=== PATIENT | male | born 1955 | race Caucasian/White ===

== ENCOUNTER 2018-05-04 10:42 | Day surgery (SDC) | payer OTHER ==
[2018-05-04 11:35] VITALS: BMI 42.5
[2018-05-04] MEDS ORDERED: LIDOCAINE HCL/PF 1% SDV 5ML VIAL ONE (11:48)
[2018-05-04] MEDS ORDERED: PROPOFOL 20 ML ONE ×3 (11:48)
[2018-05-04 12:43] VITALS: TEMP 97.8
[2018-05-04 13:55] LABS: ANION GAP 5 (8-16); CALCIUM 8.6 mg/dL (8.5-10.1); CHLORIDE 102 mmol/L (98-107); CO2 31 mmol/L (21-32); MAGNESIUM 1.5 mg/dL (1.8-2.4); SODIUM 138 mmol/L (136-145)
[2018-05-04 13:56] LABS: BLOOD UREA NITROGEN 24 mg/dL (7-18); CREATININE 1.3 mg/dL (0.7-1.3); GLUCOSE,RANDOM 157 mg/dL (74-106)
[2018-05-04 15:10] VITALS: BP 116/61; PULSE 56
--- NOTE | 2018-05-06 15:14 | PATH ---
Surgical Pathology Report Patient Name: VIANCA COATES [place]. Rec. #: [id number] /Age/Gender: 1955 (Age: 62) / M Account: [id number] Location: [facility]-ENDOSCOPY Taken: 05/04/2018 Received: 05/04/2018 Reported: 05/06/2018 Physicians: Hernandez Ye D.O. Specimen(s) Received A: BX DISTAL TRANSVERSE COLON POLYP B: BX SUBMUCOUSAL NODULE C: BX MIDTRANSVERSE COLON Clinical History Abdominal pain, colon polyps Final Diagnosis A. DISTAL TRANSVERSE COLON POLYPS X 2, POLYPECTOMY: TUBULAR ADENOMA, FRAGMENTS. B. SUBMUCOSAL NODULE IN CECUM, BIOPSY: FRAGMENTS OF COLONIC MUCOSA WITH A SMALL SUBMUCOSA LYMPHOID AGGREGATE. C. MID TRANSVERSE COLON POLYP, POLYPECTOMY: TUBULAR ADENOMA. Electronically Signed Vania Musa M.D. Gross Description A. Received in formalin, labeled "distal transverse colon polyp x 2 " are 5 boss, irregular portions of soft tissue measuring 0.4 cm. in greatest dimension. The specimens are submitted in toto in one cassette. B. Received in formalin, labeled "biopsy submucosal nodule in cecum" is a boss, irregular portion of soft tissue measuring 0.3 cm. in greatest dimension. The specimens are submitted in toto in one cassette. C. Received in formalin, labeled "polyp mid transverse colon" are 2 boss, irregular portions of soft tissue measuring 0.3 cm. in greatest dimension. The specimens are submitted in toto in one cassette. __ [facility]/05/04/2018 [place]/05/04/2018
== END 2018-05-04 14:00 | disposition home or self-care (01) ==
LOC: JASU-ENDO 10:42
PROVIDERS: ATTEND Internal Medicine Gastroenterology
PROC: 0DBH8ZX Excision of Cecum, Via Natural or Artificial Opening Endoscopic, Diagnostic (ICD-10-PCS; 2018-05-04)
PROC: 0DBL8ZX Excision of Transverse Colon, Via Natural or Artificial Opening Endoscopic, Diagnostic (ICD-10-PCS; principal; 2018-05-04 11:30)
DX: D12.3 Benign neoplasm of transverse colon (principal); K64.8 Other hemorrhoids; D12.0 Benign neoplasm of cecum
CPT/HCPCS: 36415; 80048; 82962; 83735; 88305-TC

== ENCOUNTER 2019-04-21 09:20 | Day surgery (SDC) | payer OTHER ==
[2019-04-21 07:40] VITALS: BMI 44.9
[2019-04-21] MEDS ORDERED: TETRACAINE/BENZOCAINE/BUTAMBEN 20 GM SPR TP ONE (10:59)
[2019-04-21] MEDS ORDERED: LIDOCAINE VISCOUS 2% ORAL/TOP 20 ML UNIT-DOSE CUP ONE (10:59)
[2019-04-21] MEDS ORDERED: MIDAZOLAM HCL 2 MG/2 ML SINGLE DOSE VIAL ONE (10:59)
[2019-04-21 11:31] VITALS: TEMP 99
[2019-04-21 12:58] VITALS: BP 147/83; PULSE 60
--- NOTE | 2019-04-22 17:55 | PATH ---
Surgical Pathology Report Patient Name: VIANCA COATES [facility]. Rec. #: [id number] /Age/Gender: 1955 (Age: 63) / M Account: [id number] Location: [facility]-ENDOSCOPY Taken: 04/21/2019 Received: 04/21/2019 Reported: 04/22/2019 Physicians: Hernandez Ye D.O. Specimen(s) Received A: ANGULARIS AND ANTRUM B: BODY STOMACH Clinical History Abdominal pain, dyspepsia, H. Pylori Postoperative diagnosis: Gastritis Final Diagnosis A. STOMACH, ANTRUM AND ANGULARIS, BIOPSY: GASTRIC MUCOSA WITH SEVERE CHRONIC ACTIVE GASTRITIS. IMMUNOHISTOCHEMICAL STAIN FOR H. PYLORI IS POSITIVE (MANY). B. STOMACH, BODY, BIOPSY: GASTRIC BODY MUCOSA WITH SEVERE CHRONIC ACTIVE GASTRITIS. IMMUNOHISTOCHEMICAL STAIN FOR H. PYLORI IS POSITIVE (MANY). Electronically Signed Maggie Borges M.D. Gross Description A. Received in formalin, labeled "biopsy antrum and angularis" are 3 boss, irregular portions of soft tissue ranging from 0.2-0.3 cm. in greatest dimension. The specimens are submitted in toto in one cassette. B. Received in formalin, labeled "biopsy body of stomach" are 3 boss, irregular portions of soft tissue ranging from 0.2-0.3 cm. in greatest dimension. The specimens are submitted in toto in one cassette. 04/21/2019 [facility]04/21/2019
== END 2019-04-21 12:20 | disposition home or self-care (01) ==
LOC: JASU-ENDO 09:20
PROVIDERS: ATTEND Internal Medicine Gastroenterology
PROC: 0DB68ZX Excision of Stomach, Via Natural or Artificial Opening Endoscopic, Diagnostic (ICD-10-PCS; principal; 2019-04-21 10:30)
DX: K29.50 Unspecified chronic gastritis without bleeding (principal); B96.81 Helicobacter pylori [H. pylori] as the cause of diseases classified elsewhere; I10 Essential (primary) hypertension; E11.9 Type 2 diabetes mellitus without complications; Z79.84 Long term (current) use of oral hypoglycemic drugs
CPT/HCPCS: 82962; 88305-TC; 88342-TC

== ENCOUNTER 2021-09-03 04:54 | Day surgery (SDC) | payer OTHER ==
[2021-09-03] MEDS ORDERED: KETAMINE HCL 200 MG/20 ML VIAL ONE (07:08)
[2021-09-03 07:31] VITALS: BMI 42.2
[2021-09-03 08:52] VITALS: TEMP 97.5
[2021-09-03 09:20] VITALS: BP 109/57; PULSE 52
== END 2021-09-03 09:36 | disposition home or self-care (01) ==
LOC: JASU-ENDO 04:54
PROVIDERS: ATTEND Internal Medicine Gastroenterology
PROC: 0DBH8ZX Excision of Cecum, Via Natural or Artificial Opening Endoscopic, Diagnostic (ICD-10-PCS; 2021-09-03)
PROC: 0DBN8ZX Excision of Sigmoid Colon, Via Natural or Artificial Opening Endoscopic, Diagnostic (ICD-10-PCS; 2021-09-03)
PROC: 0DBF8ZX Excision of Right Large Intestine, Via Natural or Artificial Opening Endoscopic, Diagnostic (ICD-10-PCS; 2021-09-03)
PROC: 0DBL8ZX Excision of Transverse Colon, Via Natural or Artificial Opening Endoscopic, Diagnostic (ICD-10-PCS; principal; 2021-09-03 08:00)
DX: Z12.11 Encounter for screening for malignant neoplasm of colon (principal); D12.4 Benign neoplasm of descending colon; D12.5 Benign neoplasm of sigmoid colon; D12.3 Benign neoplasm of transverse colon; K64.8 Other hemorrhoids; Z86.010 Personal history of colon polyps
CPT/HCPCS: 82962; 88305-TC

== ENCOUNTER 2022-03-18 04:40 | Day surgery (SDC) | payer OTHER ==
[2022-03-13 15:52] VITALS: BMI 41.9
[2022-03-18] MEDS ORDERED: TETRACAINE/BENZOCAINE/BUTAMBEN 20 GM SPR TP ONE ×4 (09:17)
[2022-03-18 09:33] VITALS: TEMP 98
[2022-03-18 10:06] VITALS: BP 122/76; PULSE 62
== END 2022-03-18 10:32 | disposition home or self-care (01) ==
LOC: JASU-ENDO 04:40
PROVIDERS: ATTEND Internal Medicine Gastroenterology
PROC: 0DB68ZX Excision of Stomach, Via Natural or Artificial Opening Endoscopic, Diagnostic (ICD-10-PCS; principal; 2022-03-18 08:45)
DX: K29.50 Unspecified chronic gastritis without bleeding (principal); E11.9 Type 2 diabetes mellitus without complications; I10 Essential (primary) hypertension; I48.91 Unspecified atrial fibrillation
CPT/HCPCS: 82962; 88305-TC; 88342-TC

== ENCOUNTER 2023-04-08 04:02 | Day surgery (SDC) | payer OTHER ==
[2023-04-03 12:21] VITALS: BMI 39.9
[2023-04-08 06:49] VITALS: RESP 20
[2023-04-08] MEDS ORDERED: CLINDAMYCIN 600MG PREMIX IVPB 600 MG/50 ML BAG IVPB ONE (08:04)
[2023-04-08] MEDS ORDERED: PROPOFOL 20 ML ONE (08:10)
[2023-04-08] MEDS ORDERED: MIDAZOLAM HCL 2 MG/2 ML SINGLE DOSE VIAL ONE (08:10)
[2023-04-08] MEDS ORDERED: LIDOCAINE HCL/PF 2% SDV 5ML VIAL ONE (08:10)
[2023-04-08] MEDS ORDERED: BUPIVACAINE HCL/PF 0.5% (5MG/ML) 10 ML VIAL ONE (08:15)
[2023-04-08] MEDS ORDERED: CLINDAMYCIN 600 MG PREMIX BAG IVPB ONE (08:16)
[2023-04-08] MEDS ORDERED: BUPIVACAINE HCL/PF 0.5% (5 MG/ML) 30 ML VIAL IJ ONE (08:19)
[2023-04-08] MEDS ORDERED: LIDOCAINE HCL 1%, 10 MG/ML (20ML VIAL) INF ONE (08:19)
[2023-04-08 11:02] VITALS: BP 138/75; PULSE 53; TEMP 97.3
== END 2023-04-08 11:06 | disposition home or self-care (01) ==
LOC: JASU-SURG 04:02
PROVIDERS: ATTEND Podiatrist Foot & Ankle Surgery
PROC: 0SRP0JZ Replacement of Right Toe Phalangeal Joint with Synthetic Substitute, Open Approach (ICD-10-PCS; principal; 2023-04-08 08:00)
DX: M20.41 Other hammer toe(s) (acquired), right foot (principal); E11.621 Type 2 diabetes mellitus with foot ulcer; M19.071 Primary osteoarthritis, right ankle and foot
CPT/HCPCS: 73630-TC-RT-FY; 82962; 88305-TC; 88311-TC

== ENCOUNTER 2024-03-02 07:52 | Inpatient (IN) | payer OTHER ==
[2024-03-02 08:00] VITALS: BMI 39.9
[2024-03-02] MEDS ORDERED: ALBUTEROL SO4 2.5/IPRATROPIUM 0.5 INH SOL 3 ML VIAL.NEB. NEB ONE (08:46)
[2024-03-02] MEDS: ALBUTEROL SO4 2.5/IPRATROPIUM 0.5 INH SOL 3 ML VIAL.NEB. NEB ONE (08:50)
[2024-03-02 09:11] LABS: BASO % 0.9 % (0-2.0); EOS % 1.7 % (0-4.5); HEMATOCRIT 43.2 % (35.4-49); HEMOGLOBIN 14.6 GM/dL (11.7-16.9); LYMPH % 10.7 % (8-40); MCH 28.9 pg (25.7-33.7); MCHC 33.9 g/dl (32.0-35.9); MEAN CELL VOLUME 85.4 fl (80-96); MEAN PLT VOLUME 9.4 fl (7.5-11.1); MONO % 7.3 % (3.8-10.2); NEUT % 79.4 % (42.8-82.8); PLATELET COUNT 133 10^3/uL (134-434); RBC 5.06 M/mm3 (4.00-5.60); RDW 13.1 % (11.9-15.9); WHITE BLOOD COUNT 10.5 K/mm3 (4.0-10.0)
[2024-03-02 09:27] LABS: POTASSIUM 3.9 mmol/L (3.5-5.1)
[2024-03-02 09:32] LABS: CALCIUM 8.5 mg/dL (8.5-10.1)
[2024-03-02 09:33] LABS: ALBUMIN 3.1 g/dl (3.4-5.0); BLOOD UREA NITROGEN 17.7 mg/dL (7-18)
[2024-03-02 09:35] LABS: CREATININE 0.9 mg/dL (0.55-1.3)
[2024-03-02 09:36] LABS: BILIRUBIN,TOTAL 2.6 mg/dL (0.2-1)
[2024-03-02 09:37] LABS: TOT PROT 6.4 g/dl (6.4-8.2)
[2024-03-02 09:40] LABS: N-TERMINAL BNP 3178.8 pg/ml (5-125)
[2024-03-02] MEDS ORDERED: methylPREDNISolone NA SUCC 125 MG/2 ML VIAL ONE (10:36)
[2024-03-02] MEDS ORDERED: FUROSEMIDE 40 MG/4 ML INJECTABLE VIAL ONE (10:37)
[2024-03-02] MEDS: FUROSEMIDE 40 MG/4 ML INJECTABLE VIAL IVPUSH ONE (10:44)
[2024-03-02] MEDS: methylPREDNISolone NA SUCC 125 MG/2 ML VIAL IVPUSH ONE (10:44)
[2024-03-02] MEDS ORDERED: ROSUVASTATIN CA 5 MG TABLET ONE (11:48)
[2024-03-02] MEDS ORDERED: FAMOTIDINE 20 MG TABLET ONE (11:48)
[2024-03-02] MEDS ORDERED: LOSARTAN POTASSIUM 50 MG TABLET ONE (11:48)
[2024-03-02] MEDS: ROSUVASTATIN CA 5 MG TABLET PO SCH (11:50)
[2024-03-02] MEDS: LOSARTAN POTASSIUM 50 MG TABLET PO SCH (11:50)
[2024-03-02] MEDS: FAMOTIDINE 20 MG TABLET PO SCH (11:50)
[2024-03-02 11:51] LABS: BILIRUBIN,DIRECT 0.4 mg/dL (0.0-0.2)
[2024-03-02] MEDS: ALBUTEROL SO4 2.5/IPRATROPIUM 0.5 INH SOL 3 ML VIAL.NEB. NEB SCH (20:11)
[2024-03-02] MEDS: APIXABAN 5 MG TABLET PO SCH (22:20)
[2024-03-02] MEDS: SOTALOL HCL 80 MG TABLET (FP) PO SCH (22:21)
[2024-03-03 08:25] LABS: POTASSIUM 3.8 mmol/L (3.5-5.1)
[2024-03-03 08:28] LABS: BLOOD UREA NITROGEN 29.4 mg/dL (7-18); CALCIUM 8.4 mg/dL (8.5-10.1)
[2024-03-03 08:29] LABS: ALBUMIN 2.9 g/dl (3.4-5.0); MAGNESIUM 1.7 mg/dL (1.8-2.4)
[2024-03-03 08:32] LABS: CREATININE 1.1 mg/dL (0.55-1.3); PHOSPHOROUS 3.5 mg/dL (2.5-4.9)
[2024-03-03 08:33] LABS: BILIRUBIN,TOTAL 1.9 mg/dL (0.2-1); TOT PROT 5.8 g/dl (6.4-8.2)
[2024-03-03 08:46] LABS: HEMATOCRIT 40.2 % (35.4-49); MCH 28.9 pg (25.7-33.7); MCHC 34.7 g/dl (32.0-35.9); MEAN CELL VOLUME 83.3 fl (80-96); MEAN PLT VOLUME 9.2 fl (7.5-11.1); PLATELET COUNT 130 10^3/uL (134-434); RBC 4.82 M/mm3 (4.00-5.60); RDW 13.6 % (11.9-15.9); WHITE BLOOD COUNT 12.4 K/mm3 (4.0-10.0)
[2024-03-03] MEDS: MAGNESIUM SULF 50% (8.12 MEQ/2 ML-1 GM VIAL) IVPB ONE (11:03)
[2024-03-03] MEDS: predniSONE 20 MG TABLET (UD) PO SCH (11:17)
[2024-03-03] MEDS: INSULIN ASPART SLIDING SCALE (NOVOLOG) 1 VIAL SQ SCH (11:29)
[2024-03-04 05:04] VITALS: RESP 18
[2024-03-04] MEDS: PNEUMOC 20-VAL CONJ-DIP CRM/PF 0.5 ML SYRINGE IM ONE (08:08)
[2024-03-04 10:27] LABS: BASO % 0.4 % (0-2.0); EOS % 0.4 % (0-4.5); HEMATOCRIT 38.9 % (35.4-49); HEMOGLOBIN 13.3 GM/dL (11.7-16.9); LYMPH % 12.8 % (8-40); MCH 28.7 pg (25.7-33.7); MCHC 34.2 g/dl (32.0-35.9); MEAN PLT VOLUME 9.3 fl (7.5-11.1); NEUT % 79.4 % (42.8-82.8); PLATELET COUNT 132 10^3/uL (134-434); RBC 4.63 M/mm3 (4.00-5.60); RDW 13.5 % (11.9-15.9); WHITE BLOOD COUNT 12.6 K/mm3 (4.0-10.0)
[2024-03-04 10:46] LABS: POTASSIUM 3.4 mmol/L (3.5-5.1)
[2024-03-04 10:50] LABS: CALCIUM 8.5 mg/dL (8.5-10.1)
[2024-03-04 10:51] LABS: BLOOD UREA NITROGEN 28.8 mg/dL (7-18); MAGNESIUM 2.1 mg/dL (1.8-2.4)
[2024-03-04 10:54] LABS: PHOSPHOROUS 2.6 mg/dL (2.5-4.9)
[2024-03-04] MEDS: POTASSIUM CHLORIDE TABS 20 MEQ TABLET.ER (FP) PO ONE (14:42)
[2024-03-04 15:14] VITALS: BP 149/89; PULSE 57; TEMP 97.6
== END 2024-03-04 15:38 | disposition home or self-care (01) | DRG 191 ==
LOC: JER 07:52 → UNDOADMOB 10:31 → INTOOBSV 10:31 → JERBED 10:31 → J6S 15:07 → JERBED 18:42 → OBSVTOIN 03-03 13:26
PROVIDERS: ADMIT Internal Medicine; ATTEND Internal Medicine
DX: J44.1 Chronic obstructive pulmonary disease with (acute) exacerbation (principal); Z68.41 Body mass index [BMI] 40.0-44.9, adult; E66.9 Obesity, unspecified; I10 Essential (primary) hypertension; E78.5 Hyperlipidemia, unspecified; E11.9 Type 2 diabetes mellitus without complications
CPT/HCPCS: 0241U-QW; 36415; 71045-TC-FY; 71250-TC; 80048; 80053; 82248; 82962; 83735; 83880; 84100; 84484; 85025; 85027; 87081; 93005; 93010; 93306-TC; 94640; 99285-25; G0378

== ENCOUNTER 2024-03-23 04:19 | Day surgery (SDC) | payer OTHER ==
[2024-03-21 09:45] VITALS: BMI 41.2
[2024-03-23 06:33] VITALS: RESP 20
[2024-03-23] MEDS ORDERED: LIDOCAINE HCL 1%, 10 MG/ML (20ML VIAL) ONE (07:07)
[2024-03-23] MEDS ORDERED: BUPIVACAINE HCL/PF 0.5% (5MG/ML) 10 ML VIAL ONE (07:07)
[2024-03-23] MEDS ORDERED: GENTAMICIN SO4 80 MG/2 ML VIAL ONE (07:07)
[2024-03-23] MEDS ORDERED: MIDAZOLAM HCL 2 MG/2 ML SINGLE DOSE VIAL ONE (07:16)
[2024-03-23] MEDS ORDERED: FENTANYL CITRATE/PF 50 MCG/ML VIAL ONE (07:16)
[2024-03-23] MEDS ORDERED: PROPOFOL 20 ML ONE (07:16)
[2024-03-23] MEDS ORDERED: LIDOCAINE HCL/PF 2% SDV 5ML VIAL ONE (07:16)
[2024-03-23] MEDS ORDERED: CLINDAMYCIN PHOSPHATE 300 MG/2 ML VIAL ONE (07:48)
[2024-03-23] MEDS ORDERED: CLINDAMYCIN PHOSPHATE 600 MG/4 ML VIAL ONE (07:48)
[2024-03-23] MEDS: CLINDAMYCIN 900 MG PREMIX BAG IVPB ONE (07:50)
[2024-03-23] MEDS ORDERED: PROPOFOL 40 ML ONE (07:50)
[2024-03-23] MEDS: BUPIVACAINE HCL/PF 0.5% (5 MG/ML) 30 ML VIAL IJ ONE (07:57)
[2024-03-23] MEDS: LIDOCAINE HCL 1% PRESERVATIVE FREE - 30ML VIAL IJ ONE (07:57)
[2024-03-23] MEDS ORDERED: ONDANSETRON 4 MG/2 ML VIAL ONE (08:05)
[2024-03-23] MEDS ORDERED: KETOROLAC TROMETHAMINE 30 MG/1 ML VIAL ONE (08:05)
[2024-03-23 09:45] VITALS: TEMP 95
[2024-03-23 11:34] VITALS: BP 132/78; PULSE 59
== END 2024-03-23 10:30 | disposition home or self-care (01) ==
LOC: JASU-SURG 04:19
PROVIDERS: ATTEND Podiatrist Foot & Ankle Surgery
PROC: 0L8W0ZZ Division of Left Foot Tendon, Open Approach (ICD-10-PCS; principal; 2024-03-23 07:30)
DX: M20.42 Other hammer toe(s) (acquired), left foot (principal)
CPT/HCPCS: 73630-TC-LT; 82962; 88305-TC; 88311-TC

== ENCOUNTER 2024-04-24 10:06 | Observation (INO) | payer OTHER ==
[2024-04-24 10:14] VITALS: BMI 41.2
[2024-04-24] MEDS ORDERED: ACETAMINOPHEN INJECTION 100 ML IVPB ONE (10:47)
[2024-04-24] MEDS ORDERED: MAG HYDROX/AL HYDROX/SIMETH 30 ML UNIT-DOSE CUP ONE (10:48)
[2024-04-24] MEDS ORDERED: FAMOTIDINE 20 MG/50 ML IVPB 20 MG/50 ML MG IVPB ONE (10:48)
[2024-04-24] MEDS: FAMOTIDINE 20 MG/50 ML IVPB 20 MG/50 ML MG IVPB ONE (11:20)
[2024-04-24] MEDS: MAG HYDROX/AL HYDROX/SIMETH 30 ML UNIT-DOSE CUP PO ONE (11:20)
[2024-04-24] MEDS: ACETAMINOPHEN 1000 MG/100 ML BAG IVPB ONE (11:20)
[2024-04-24 11:27] LABS: BASO % 0.5 % (0-2.0); HEMATOCRIT 42.7 % (35.4-49); HEMOGLOBIN 14.8 GM/dL (11.7-16.9); LYMPH % 12.5 % (8-40); MCHC 34.7 g/dl (32.0-35.9); MEAN CELL VOLUME 83.3 fl (80-96); MEAN PLT VOLUME 9.1 fl (7.5-11.1); MONO % 8.8 % (3.8-10.2); NEUT % 76.2 % (42.8-82.8); PLATELET COUNT 148 10^3/uL (134-434); RBC 5.13 M/mm3 (4.00-5.60); RDW 13.7 % (11.9-15.9); WHITE BLOOD COUNT 9.6 K/mm3 (4.0-10.0)
[2024-04-24 11:31] LABS: INR 1.46 (0.83-1.09); PROTHROMBIN TIME (PATIENT) 16.6 SEC (9.7-13.0)
[2024-04-24 11:39] LABS: POTASSIUM 4.1 mmol/L (3.5-5.1)
[2024-04-24 11:42] LABS: CALCIUM 8.7 mg/dL (8.5-10.1)
[2024-04-24 11:43] LABS: ALBUMIN 3.3 g/dl (3.4-5.0); BLOOD UREA NITROGEN 20.8 mg/dL (7-18)
[2024-04-24 11:46] LABS: CREATININE 1.2 mg/dL (0.55-1.3)
[2024-04-24 11:47] LABS: BILIRUBIN,TOTAL 1.6 mg/dL (0.2-1); TOT PROT 6.5 g/dl (6.4-8.2)
[2024-04-24 11:51] LABS: N-TERMINAL BNP 1828.1 pg/ml (5-125)
[2024-04-24 19:56] LABS: BILIRUBIN,DIRECT 0.3 mg/dL (0.0-0.2)
[2024-04-24] MEDS ORDERED: INSULIN ASPART SLIDING SCALE (NOVOLOG) 1 VIAL SQ SCH (22:00)
[2024-04-24] MEDS: ACETAMINOPHEN 500 MG TABLET (FP) PO ONE (23:18)
[2024-04-24] MEDS: INSULIN ASPART SLIDING SCALE (NOVOLOG) 1 VIAL SQ SCH (23:22)
[2024-04-25 05:11] LABS: EPI CELLS 13 /uL (0-25.1); HYALINE CASTS 1 /uL (0-3.1); PH,URINE 6.5 (5.0-8.0); URINE APPEARANCE CLEAR; URINE BACTERIA 48 /uL (0-1359); URINE BILIRUBIN NEGATIVE (NEGATIVE); URINE COLOR YELLOW; URINE GLUCOSE (UA) NEGATIVE (NEGATIVE); URINE KETONE TRACE (NEGATIVE); URINE LEUK ESTERASE NEGATIVE (NEGATIVE); URINE NITRITE NEGATIVE (NEGATIVE); URINE PROTEIN 3+ (NEGATIVE); URINE RBC 41 /uL (0-23.9); URINE WBC 20 /uL (0-25.8)
[2024-04-25] MEDS: ACETAMINOPHEN 500 MG TABLET (FP) PO PRN (06:34)
[2024-04-25 07:58] LABS: HEMATOCRIT 39.6 % (35.4-49); HEMOGLOBIN 13.3 GM/dL (11.7-16.9); MCH 28.2 pg (25.7-33.7); MCHC 33.7 g/dl (32.0-35.9); MEAN CELL VOLUME 83.7 fl (80-96); MEAN PLT VOLUME 9.5 fl (7.5-11.1); PLATELET COUNT 125 10^3/uL (134-434); RBC 4.73 M/mm3 (4.00-5.60); RDW 13.8 % (11.9-15.9); WHITE BLOOD COUNT 7.7 K/mm3 (4.0-10.0)
[2024-04-25 08:20] LABS: POTASSIUM 3.6 mmol/L (3.5-5.1)
[2024-04-25 08:28] LABS: BLOOD UREA NITROGEN 15.1 mg/dL (7-18); MAGNESIUM 1.6 mg/dL (1.8-2.4)
[2024-04-25 08:32] LABS: CREATININE 0.8 mg/dL (0.55-1.3)
[2024-04-25 08:34] LABS: BILIRUBIN,TOTAL 1.9 mg/dL (0.2-1); TOT PROT 5.7 g/dl (6.4-8.2)
[2024-04-25] MEDS ORDERED: INSULIN (NOVOLOG) ASPART 100 UNITS/ML 10ML VIAL ONE (10:35)
[2024-04-25] MEDS: PANTOPRAZOLE SODIUM 40 MG VIAL IVPUSH SCH (10:38)
[2024-04-25] MEDS: LOSARTAN POTASSIUM 50 MG TABLET PO SCH (10:38)
[2024-04-25] MEDS: FAMOTIDINE 20 MG TABLET PO SCH (10:38)
[2024-04-25] MEDS: APIXABAN 5 MG TABLET PO SCH (10:38)
[2024-04-25] MEDS: MAGNESIUM SULFATE IN WATER 2 GM/50 ML IVPB IVPB ONE (10:38)
[2024-04-25] MEDS: ROSUVASTATIN CA 5 MG TABLET PO SCH (21:04)
[2024-04-25] MEDS: SOTALOL HCL 80 MG TABLET (FP) PO SCH (21:04)
[2024-04-26 08:13] LABS: BASO % 0.5 % (0-2.0); EOS % 2.4 % (0-4.5); HEMATOCRIT 39.7 % (35.4-49); HEMOGLOBIN 13.6 GM/dL (11.7-16.9); LYMPH % 21.7 % (8-40); MCH 28.5 pg (25.7-33.7); MCHC 34.4 g/dl (32.0-35.9); MEAN CELL VOLUME 82.9 fl (80-96); MEAN PLT VOLUME 9.4 fl (7.5-11.1); MONO % 9.5 % (3.8-10.2); NEUT % 65.9 % (42.8-82.8); PLATELET COUNT 131 10^3/uL (134-434); RBC 4.79 M/mm3 (4.00-5.60); RDW 13.5 % (11.9-15.9); WHITE BLOOD COUNT 8.4 K/mm3 (4.0-10.0)
[2024-04-26 08:36] LABS: POTASSIUM 3.9 mmol/L (3.5-5.1)
[2024-04-26 08:41] LABS: CALCIUM 8.9 mg/dL (8.5-10.1)
[2024-04-26 08:42] LABS: ALBUMIN 3.2 g/dl (3.4-5.0); BLOOD UREA NITROGEN 13.4 mg/dL (7-18)
[2024-04-26 08:45] LABS: CREATININE 1.1 mg/dL (0.55-1.3)
[2024-04-26 08:46] LABS: BILIRUBIN,TOTAL 1.8 mg/dL (0.2-1)
[2024-04-27 00:09] LABS: ALPHA 2 MACROGLOBULINS,QN 224 mg/dL (110-276); ALT(SGPT)P5P 12 IU/L (0-55); APOLIPOPROTEIN A-1. 88 mg/dL (101-178); CHOLESTEROL TOTAL 77 mg/dL (100-199); GLUCOSE SERUM 132 mg/dL (70-99)
[2024-04-27 11:54] VITALS: BP 154/90; PULSE 55; RESP 18; TEMP 97.7
== END 2024-04-27 12:20 | disposition home or self-care (01) ==
LOC: JER 10:06 → JERBED 17:32 → J7W 22:58
PROVIDERS: ADMIT Internal Medicine; ATTEND Internal Medicine
PROC: 3E033NZ Introduction of Analgesics, Hypnotics, Sedatives into Peripheral Vein, Percutaneous Approach (ICD-10-PCS; principal; 2024-04-24)
PROC: 3E013VG Introduction of Insulin into Subcutaneous Tissue, Percutaneous Approach (ICD-10-PCS; 2024-04-24)
PROC: 3E0337Z Introduction of Electrolytic and Water Balance Substance into Peripheral Vein, Percutaneous Approach (ICD-10-PCS; 2024-04-24)
DX: N17.9 Acute kidney failure, unspecified (principal); E86.0 Dehydration; E11.65 Type 2 diabetes mellitus with hyperglycemia; R07.9 Chest pain, unspecified; E78.5 Hyperlipidemia, unspecified; E66.9 Obesity, unspecified
CPT/HCPCS: 36415; 71045-TC-FY; 74176-TC; 76705-TC; 80053; 81003; 82248; 82962; 83690; 83735; 83880; 84100; 84484; 85025; 85027; 85610; 85730; 86704; 86803; 87081; 87340; 87517; 93005; 93010; 96361; 96372; 96374; 99285-25; G0378; J0131

== ENCOUNTER 2024-06-23 05:05 | Day surgery (SDC) | payer OTHER ==
[2024-06-22 12:24] VITALS: BMI 38.7
[2024-06-23] MEDS: LIDOCAINE HCL 1% PRESERVATIVE FREE - 30ML VIAL IJ ONE (11:04)
[2024-06-23 11:50] VITALS: RESP 18; TEMP 97
[2024-06-23 12:21] VITALS: BP 190/98; PULSE 58
== END 2024-06-23 12:22 | disposition home or self-care (01) ==
LOC: JASU-SURG 05:05
PROVIDERS: ATTEND Pain Medicine Pain Medicine
PROC: 01HY3MZ Insertion of Neurostimulator Lead into Peripheral Nerve, Percutaneous Approach (ICD-10-PCS; principal; 2024-06-23 10:00)
DX: G89.4 Chronic pain syndrome (principal)
CPT/HCPCS: 64555; C1778

== ENCOUNTER 2024-11-11 03:46 | Day surgery (SDC) | payer OTHER ==
[2024-11-10 09:38] VITALS: BMI 38.2
[2024-11-11 06:42] VITALS: RESP 20; TEMP 97.5
[2024-11-11] MEDS ORDERED: LIDOCAINE HCL/PF 2% SDV 5ML VIAL ONE (07:10)
[2024-11-11] MEDS ORDERED: LIDOCAINE HCL/PF 1% SDV 5ML VIAL ONE (07:11)
[2024-11-11] MEDS ORDERED: BUPIVACAINE HCL/PF 0.25% (2.5MG/ML) 10 ML VIAL ONE (07:11)
[2024-11-11] MEDS ORDERED: DEXMEDETOMIDINE HCL 200 MCG/2 ML IVPB ONE (07:45)
[2024-11-11] MEDS ORDERED: MIDAZOLAM HCL 2 MG/2 ML SINGLE DOSE VIAL ONE ×3 (07:47→08:53)
[2024-11-11] MEDS ORDERED: GLYCOPYRROLATE 0.2 MG/1 ML VIAL ONE (08:25)
[2024-11-11] MEDS ORDERED: CLINDAMYCIN PHOSPHATE 600 MG/4 ML VIAL ONE (08:40)
[2024-11-11] MEDS: CLINDAMYCIN PHOSPHATE 600 MG/4 ML VIAL IVPB ONE (08:43)
[2024-11-11] MEDS ORDERED: ACETAMINOPHEN 500 MG TABLET (FP) PO PRN (09:01)
[2024-11-11] MEDS: LIDOCAINE HCL 1% PRESERVATIVE FREE - 30ML VIAL IJ ONE ×2 (09:28)
[2024-11-11 14:57] VITALS: BP 147/61; PULSE 60
== END 2024-11-11 11:11 | disposition home or self-care (01) ==
LOC: JASU-SURG 03:46
PROVIDERS: ATTEND Pain Medicine Pain Medicine
PROC: 01HY3MZ Insertion of Neurostimulator Lead into Peripheral Nerve, Percutaneous Approach (ICD-10-PCS; 2024-11-11)
PROC: 0JH73BZ Insertion of Single Array Stimulator Generator into Back Subcutaneous Tissue and Fascia, Percutaneous Approach (ICD-10-PCS; principal; 2024-11-11 08:00)
DX: G57.72 Causalgia of left lower limb (principal)
CPT/HCPCS: 63650; C1778; 76000-TC-FY; 82962; C1889; C1897

== ENCOUNTER 2025-02-11 09:50 | Emergency (ER) | payer OTHER ==
[2025-02-11 10:02] VITALS: BMI 41.2
[2025-02-11] MEDS: KETOROLAC TROMETHAMINE 15 MG/ML VIAL IVPUSH ONE (10:57)
[2025-02-11] MEDS ORDERED: LOSARTAN POTASSIUM 50 MG TABLET ONE (10:59)
[2025-02-11] MEDS ORDERED: FAMOTIDINE 20 MG/50 ML IVPB 20 MG/50 ML MG IVPB ONE (11:00)
[2025-02-11] MEDS ORDERED: LABETALOL HCL 20 MG/4 ML VIAL ONE (11:00)
[2025-02-11 11:04] LABS: ABSOLUTE IMMATURE GRANULOCYTES 0.06 x10^3/uL (0.0-0.031); BASOPHILS # 0.05 x10^3/uL (0.01-0.08); EOSINOPHIL % 1.6 % (0.8-7.0); HEMATOCRIT 44.8 % (40.1-51.0); HEMOGLOBIN 14.5 g/dL (13.7-17.5); MCHC 32.4 g/dl (32.3-36.5); MEAN CELL VOLUME 86.3 fl (79.0-92.2); MEAN PLT VOLUME 10.5 fl (9.4-12.4); MONOCYTE # 0.66 x10^3/uL (0.30-0.82); MONOCYTE % 5.2 % (5.3-12.2); PLATELET COUNT # 122 x10^3/uL (163-337); RDW 13.2 % (12.2-16.4)
[2025-02-11] MEDS: LOSARTAN POTASSIUM 50 MG TABLET PO ONE (11:10)
[2025-02-11] MEDS: FAMOTIDINE 20 MG/50 ML IVPB 20 MG/50 ML MG IVPB ONE (11:11)
[2025-02-11] MEDS: LACTATED RINGERS SOLUTION 1000 ML INFUS.BAG IV ONE (11:11)
[2025-02-11] MEDS: LABETALOL HCL 20 MG/4 ML VIAL IVPUSH ONE (11:11)
[2025-02-11 11:24] LABS: POTASSIUM 3.8 mmol/L (3.5-5.1)
[2025-02-11 11:27] LABS: CALCIUM 8.5 mg/dL (8.5-10.1)
[2025-02-11 11:28] LABS: ALBUMIN 3.4 g/dl (3.4-5.0); BLOOD UREA NITROGEN 18.8 mg/dL (7-18)
[2025-02-11 11:31] LABS: CREATININE 1.1 mg/dL (0.55-1.3)
[2025-02-11 11:32] LABS: BILIRUBIN,TOTAL 2.4 mg/dL (0.2-1)
[2025-02-11 11:33] LABS: TOT PROT 6.2 g/dl (6.4-8.2)
[2025-02-11] MEDS ORDERED: ACETAMINOPHEN 325 MG TABLET (FP) ONE (11:56)
[2025-02-11] MEDS: ACETAMINOPHEN 500 MG TABLET (FP) PO ONE (12:02)
[2025-02-11] MEDS ORDERED: EPINEPHrine 1:1000 P/F - 1 MG/ML AMP ONE (12:53)
[2025-02-11] MEDS: EPINEPHrine 1:1,000 0.3 MG/0.3 ML SYR IM ONE (13:27)
[2025-02-11] MEDS ORDERED: morphine SULFATE 4 MG/ML VIAL ONE (14:05)
[2025-02-11] MEDS: SODIUM CHLORIDE 500 ML IV STA (14:16)
[2025-02-11] MEDS: morphine CARPU-JECT 4 MG/1 ML DISP.SYRIN IVPUSH ONE (14:17)
[2025-02-11 14:42] VITALS: BP 186/69; PULSE 108; RESP 20; TEMP 98.3
== END 2025-02-11 16:19 | disposition home or self-care (01) ==
LOC: JER 09:50
PROC: 3E033GC Introduction of Other Therapeutic Substance into Peripheral Vein, Percutaneous Approach (ICD-10-PCS; principal; 2025-02-11)
PROC: 3E033GC Introduction of Other Therapeutic Substance into Peripheral Vein, Percutaneous Approach (ICD-10-PCS; 2025-02-11)
PROC: 3E033NZ Introduction of Analgesics, Hypnotics, Sedatives into Peripheral Vein, Percutaneous Approach (ICD-10-PCS; 2025-02-11)
PROC: 3E0337Z Introduction of Electrolytic and Water Balance Substance into Peripheral Vein, Percutaneous Approach (ICD-10-PCS; 2025-02-11)
DX: R16.1 Splenomegaly, not elsewhere classified (principal); R10.12 Left upper quadrant pain; G89.29 Other chronic pain; I10 Essential (primary) hypertension
CPT/HCPCS: 36415; 74176-TC; 80053; 83605; 83690; 85025; 93005; 93010; 99285-25

== ENCOUNTER 2025-05-28 09:24 | Inpatient (IN) | payer OTHER ==
[2025-05-28 10:35] LABS: ABSOLUTE IMMATURE GRANULOCYTES 0.03 x10^3/uL (0.0-0.031); BASOPHILS # 0.04 x10^3/uL (0.01-0.08); EOSINOPHIL % 1.5 % (0.8-7.0); EOSINOPHILS # 0.13 x10^3/uL (0.04-0.54); MCHC 32.4 g/dl (32.3-36.5); MEAN CELL VOLUME 84.6 fl (79.0-92.2); MEAN PLT VOLUME 10.8 fl (9.4-12.4); MONOCYTE # 0.70 x10^3/uL (0.30-0.82); MONOCYTE % 8.3 % (5.3-12.2); RDW 13.0 % (12.2-16.4)
[2025-05-28] MEDS ORDERED: ACETAMINOPHEN INJECTION 100 ML ONE (10:41)
[2025-05-28] MEDS: ACETAMINOPHEN 1000 MG/100 ML BAG IVPB ONE (10:43)
[2025-05-28 10:56] LABS: CO2 31.0 mmol/L (21-32); GLUCOSE,RANDOM 129.0 mg/dL (74-106)
[2025-05-28 10:59] LABS: CREATININE 1.2 mg/dL (0.55-1.3); SGOT/AST 16.0 U/L (15-37); SGPT/ALT 26.0 U/L (13-61)
[2025-05-28 11:01] LABS: TOT PROT 6.0 g/dl (6.4-8.2)
[2025-05-28 11:02] LABS: ALK PHOS 111.0 U/L (45-117)
[2025-05-28 11:04] LABS: N-TERMINAL BNP 3269.4 pg/ml (5-125)
[2025-05-28] MEDS ORDERED: MAGNESIUM SULFATE IN WATER 2 GM/50 ML IVPB IVPB ONE (11:07)
[2025-05-28] MEDS: MAGNESIUM SULFATE IN WATER 2 GM/50 ML IVPB IVPB ONE (11:13)
[2025-05-28 11:52] LABS: HCV DIAGNOSTIC IN-HOUSE W/RFLX NON-REACTIVE (NONREACTIVE)
[2025-05-28 11:53] LABS: HIV INTERPRETATION NEGATIVE (NEGATIVE)
[2025-05-28 14:12] LABS: EPI CELLS 21 /uL (0-25.1); HYALINE CASTS 1 /uL (0-3.1); URINE APPEARANCE CLEAR; URINE BACTERIA 11 /uL (0-1359); URINE BILIRUBIN NEGATIVE (NEGATIVE); URINE COLOR YELLOW; URINE GLUCOSE (UA) NEGATIVE (NEGATIVE); URINE KETONE NEGATIVE (NEGATIVE); URINE LEUK ESTERASE NEGATIVE (NEGATIVE); URINE NITRITE NEGATIVE (NEGATIVE); URINE PROTEIN 4+ (NEGATIVE); URINE RBC 27 /uL (0-23.9); URINE UROBILINOGEN 1.0 mg/dL (0.2-1.0); URINE WBC 13 /uL (0-25.8)
[2025-05-28] MEDS ORDERED: CEFEPIME HCL/D5W 1 GM/50 ML BAG IVPB ONE (14:18)
[2025-05-28] MEDS: CEFEPIME HCL 1 GM VIAL (RESTRICTED TO ID) IVPB ONE (14:21)
[2025-05-28] MEDS: morphine CARPU-JECT 2 MG/1 ML DISP.SYRIN IVPUSH ONE (15:57)
[2025-05-28] MEDS: morphine CARPU-JECT 4 MG/1 ML DISP.SYRIN IVPUSH ONE (15:57)
[2025-05-28] MEDS ORDERED: LOSARTAN POTASSIUM 50 MG TABLET ONE (16:39)
[2025-05-28] MEDS: LOSARTAN POTASSIUM 50 MG TABLET PO SCH (16:41)
[2025-05-28] MEDS ORDERED: MORPHINE SULFATE 2 MG/ML SYRINGE ONE (20:12)
[2025-05-28] MEDS ORDERED: HYDROCHLOROTHIAZIDE 25 MG TABLET (FP) ONE (22:45)
[2025-05-28] MEDS ORDERED: APIXABAN 5 MG TABLET ONE (22:45)
[2025-05-28] MEDS: APIXABAN 5 MG TABLET PO SCH (22:46)
[2025-05-28] MEDS: HYDROCHLOROTHIAZIDE 25 MG TABLET (FP) PO SCH (22:46)
[2025-05-29] MEDS: ACETAMINOPHEN 1000 MG/100 ML BAG IVPB ONE (00:16)
[2025-05-29] MEDS: KETOROLAC TROMETHAMINE 15 MG/ML VIAL IVPUSH ONE (00:17)
[2025-05-29] MEDS ORDERED: MORPHINE SULFATE 2 MG/ML SYRINGE ONE (02:43)
[2025-05-29] MEDS: PANTOPRAZOLE 40 MG TABLET PO ONE (03:03)
[2025-05-29] MEDS ORDERED: PANTOPRAZOLE 40 MG TABLET PO ONE (03:04)
[2025-05-29 04:56] VITALS: BMI 39.0
[2025-05-29 08:26] LABS: MCHC 32.9 g/dl (32.3-36.5); MEAN CELL VOLUME 83.7 fl (79.0-92.2); MEAN PLT VOLUME 11.0 fl (9.4-12.4); RDW 12.9 % (12.2-16.4)
[2025-05-29 09:02] LABS: CO2 27.0 mmol/L (21-32); GLUCOSE,RANDOM 138.0 mg/dL (74-106)
[2025-05-29 09:05] LABS: CREATININE 0.9 mg/dL (0.55-1.3); SGPT/ALT 25.0 U/L (13-61)
[2025-05-29 09:06] LABS: SGOT/AST 18.0 U/L (15-37)
[2025-05-29 09:07] LABS: TOT PROT 5.7 g/dl (6.4-8.2)
[2025-05-29 09:08] LABS: ALK PHOS 108.0 U/L (45-117)
[2025-05-29] MEDS: CEFTRIAXONE 2 GM in DEXTROSE 5%-WATER 100 ML IVPB SCH (09:18)
[2025-05-29] MEDS: ROSUVASTATIN CA 5 MG TABLET PO SCH (09:19)
[2025-05-29] MEDS ORDERED: ACETAMINOPHEN 1000 MG/100 ML BAG IVPB PRN (11:09)
[2025-05-29] MEDS: MAGNESIUM 1GM/D5W - 1 GM/100 ML IVPB IVPB ONE (11:42)
[2025-05-29] MEDS ORDERED: KETOROLAC TROMETHAMINE 15 MG/ML VIAL IVPUSH PRN (16:35)
[2025-05-29] MEDS: ACETAMINOPHEN 1000 MG/100 ML BAG IVPB SCH (18:24)
[2025-05-30] MEDS: KETOROLAC TROMETHAMINE 15 MG/ML VIAL IVPUSH PRN (01:42)
[2025-05-30 07:29] LABS: MEAN PLT VOLUME 11.5 fl (9.4-12.4); RDW 13.2 % (12.2-16.4)
[2025-05-30 07:31] LABS: IMMATURE PLATELET FRACTION # 5.60 x10^3/uL; MCHC 33.0 g/dl (32.3-36.5); MEAN CELL VOLUME 84.4 fl (79.0-92.2)
[2025-05-30] MEDS: amLODIPine BESYLATE 5 MG TABLET (FP) PO SCH (07:52)
[2025-05-30] MEDS: LOSARTAN POTASSIUM 50 MG TABLET PO SCH (07:52)
[2025-05-30 09:11] LABS: CO2 28.0 mmol/L (21-32); GLUCOSE,RANDOM 105.0 mg/dL (74-106)
[2025-05-30 09:13] LABS: CREATININE 1.0 mg/dL (0.55-1.3); SGOT/AST 16.0 U/L (15-37); SGPT/ALT 22.0 U/L (13-61)
[2025-05-30 09:15] LABS: ALK PHOS 96.0 U/L (45-117); TOT PROT 5.4 g/dl (6.4-8.2)
[2025-05-30] MEDS ORDERED: amLODIPine BESYLATE 2.5 MG TABLET (FP) PO SCH ×2 (10:00)
[2025-05-30] MEDS ORDERED: SOTALOL HCL 80 MG TABLET (FP) PO SCH ×2 (10:00)
[2025-05-30] MEDS: PANTOPRAZOLE 40 MG TABLET PO SCH (11:07)
[2025-05-30] MEDS: POTASSIUM CHLORIDE ORAL LIQUID 20 MEQ/15 ML PO ONE (11:07)
[2025-05-30] MEDS: amLODIPine BESYLATE 5 MG TABLET (FP) PO ONE (11:59)
[2025-05-30] MEDS: DICYCLOMINE HCL 10 MG CAPSULE PO ONE (21:28)
[2025-05-31 06:51] LABS: RDW 13.2 % (12.2-16.4)
[2025-05-31 06:53] LABS: IMMATURE PLATELET FRACTION # 4.50 x10^3/uL; MCHC 33.0 g/dl (32.3-36.5); MEAN CELL VOLUME 84.0 fl (79.0-92.2); MEAN PLT VOLUME 10.6 fl (9.4-12.4)
[2025-05-31 07:34] LABS: CO2 31.0 mmol/L (21-32); GLUCOSE,RANDOM 133.0 mg/dL (74-106)
[2025-05-31 07:37] LABS: CREATININE 1.0 mg/dL (0.55-1.3); SGOT/AST 21.0 U/L (15-37); SGPT/ALT 27.0 U/L (13-61)
[2025-05-31 07:40] LABS: ALK PHOS 106.0 U/L (45-117); TOT PROT 5.8 g/dl (6.4-8.2)
[2025-05-31] MEDS: SPIRONOLACTONE 25 MG TABLET PO ONE (08:58)
[2025-05-31] MEDS: amLODIPine BESYLATE 10 MG TABLET (FP) PO SCH (09:17)
[2025-05-31] MEDS: POTASSIUM CHLORIDE ORAL LIQUID 20 MEQ/15 ML PO ONE (09:18)
[2025-05-31] MEDS ORDERED: SPIRONOLACTONE 25 MG TABLET PO SCH (10:00)
[2025-05-31] MEDS: SOTALOL HCL 80 MG TABLET (FP) PO SCH (18:01)
[2025-05-31] MEDS: hydrALAZINE HCL 25 MG TABLET (FP) PO SCH (18:03)
[2025-06-01 07:18] LABS: BASOPHILS # 0.04 x10^3/uL (0.01-0.08)
[2025-06-01 07:20] LABS: ABSOLUTE IMMATURE GRANULOCYTES 0.04 x10^3/uL (0.0-0.031); EOSINOPHIL % 2.6 % (0.8-7.0); EOSINOPHILS # 0.22 x10^3/uL (0.04-0.54); IMMATURE PLATELET FRACTION # 4.60 x10^3/uL; MCHC 32.6 g/dl (32.3-36.5); MEAN CELL VOLUME 85.1 fl (79.0-92.2); MEAN PLT VOLUME 11.3 fl (9.4-12.4); MONOCYTE # 0.84 x10^3/uL (0.30-0.82); MONOCYTE % 9.8 % (5.3-12.2); RDW 13.3 % (12.2-16.4)
[2025-06-01 07:49] LABS: CO2 29.0 mmol/L (21-32); GLUCOSE,RANDOM 141.0 mg/dL (74-106)
[2025-06-01 07:52] LABS: CREATININE 1.0 mg/dL (0.55-1.3); SGOT/AST 35.0 U/L (15-37); SGPT/ALT 41.0 U/L (13-61)
[2025-06-01 07:53] LABS: TOT PROT 5.6 g/dl (6.4-8.2)
[2025-06-01 07:54] LABS: ALK PHOS 99.0 U/L (45-117)
[2025-06-01] MEDS: SPIRONOLACTONE 25 MG TABLET PO ONE (08:16)
[2025-06-01] MEDS: amLODIPine BESYLATE 10 MG TABLET (FP) PO SCH (09:05)
[2025-06-01] MEDS: SPIRONOLACTONE 25 MG TABLET PO SCH (09:23)
[2025-06-01] MEDS: POLYETHYLENE GLYCOL (HEALTHYLAX) 3350 17 GM PACKET PO SCH (09:55)
[2025-06-01] MEDS: BISACODYL 5 MG TABLET.DR (FP) PO ONE (09:55)
[2025-06-01] MEDS: SOTALOL HCL 80 MG TABLET (FP) PO SCH (10:25)
[2025-06-01] MEDS: ZINC OXIDE 20% TOPICAL OINTMENT 30 GM TUBE TP SCH (11:45)
[2025-06-01] MEDS: hydrALAZINE HCL 50 MG TABLET (FP) PO SCH (13:40)
[2025-06-01] MEDS: GABAPENTIN 100 MG CAPSULE PO SCH (21:33)
[2025-06-02 08:35] LABS: MCHC 32.2 g/dl (32.3-36.5); MEAN CELL VOLUME 86.0 fl (79.0-92.2); MEAN PLT VOLUME 11.2 fl (9.4-12.4); RDW 13.6 % (12.2-16.4)
[2025-06-02 09:24] LABS: CREATININE 1.0 mg/dL (0.55-1.3); SGPT/ALT 58.0 U/L (13-61)
[2025-06-02 09:25] LABS: SGOT/AST 45.0 U/L (15-37)
[2025-06-02 09:26] LABS: TOT PROT 5.4 g/dl (6.4-8.2)
[2025-06-02 09:27] LABS: ALK PHOS 94.0 U/L (45-117); CO2 29.0 mmol/L (21-32); GLUCOSE,RANDOM 143.0 mg/dL (74-106)
[2025-06-02] MEDS: SPIRONOLACTONE 25 MG TABLET PO SCH (09:40)
[2025-06-02] MEDS: GABAPENTIN 100 MG CAPSULE PO SCH (09:41)
[2025-06-03 06:35] VITALS: RESP 18
[2025-06-03 08:44] VITALS: BP 158/64; PULSE 64; TEMP 98.2
== END 2025-06-03 10:08 | disposition home or self-care (01) | DRG 699 ==
LOC: JER 09:24 → JERBED 15:44 → J4W 05-29 03:55
PROVIDERS: ADMIT Student in an Organized Health Care Education/Training Program; ATTEND Internal Medicine
DX: Q64.4 Malformation of urachus (principal); I50.32 Chronic diastolic (congestive) heart failure; I25.2 Old myocardial infarction; I16.0 Hypertensive urgency; E83.42 Hypomagnesemia; L76.82 Other postprocedural complications of skin and subcutaneous tissue; I48.91 Unspecified atrial fibrillation; R00.1 Bradycardia, unspecified; I11.0 Hypertensive heart disease with heart failure; E88.09 Other disorders of plasma-protein metabolism, not elsewhere classified; E11.40 Type 2 diabetes mellitus with diabetic neuropathy, unspecified
CPT/HCPCS: 36415; 71045-TC-FY; 74176-TC; 80053; 81003; 82248; 82962; 83036; 83605; 83690; 83735; 83880; 84100; 84484; 85025; 85027; 86140; 86803; 87077; 87086; 87389; 93005; 93010; 93306-TC; 99285-25